=== PATIENT | female | born 1995 | race Caucasian/White ===

== ENCOUNTER 2018-09-10 09:39 | Emergency (ER) | payer MEDICAID, SELFPAY ==
[2018-09-10 09:46] VITALS: BP 113/65; PULSE 92; RESP 18; TEMP 37; O2SAT 96
--- NOTE | 2018-09-10 10:14 | DI.CT_ITS ---
SYMPTOM/DIAGNOSIS: RLQ ABD PAIN CT ABDOMEN AND PELVIS: CT scan of the abdomen and pelvis was performed following the uneventful administration of intravenous contrast material. Comparison x-ray is 05/30/18. The visualized lung bases are clear. The liver, spleen, gallbladder, bile ducts, pancreas and adrenal glands are all unremarkable. The portal and superior mesenteric veins are patent. The kidneys show normal and symmetric enhancement. No evidence of a solid renal mass or obstruction. The urinary bladder is intact. The reproductive organs show an intrauterine device with a horizontal orientation with the distal aspect projected to the right. It is unchanged in alignment compared to the plain films from 05/30/18. The right ovary appears grossly unremarkable. Note is made of a 2.7 cm left adnexal cyst probably ovarian. The bowel shows no evidence of obstruction or inflammation. There is a normal appendix present. The aorta is of normal caliber. No significant abdominal or pelvic adenopathy or pneumoperitoneum is seen. There is a trace amount of free fluid in the pelvis. The bones are intact. IMPRESSION: 1. No evidence of an acute abdomen. Normal appendix. No biliary ductal dilatation. No evidence of obstructive uropathy. 2. 2.7 cm left ovarian cyst. 3. Intrauterine device. The findings were discussed with the Emergency Department on the date of the examination.
--- NOTE | 2018-09-10 10:18 | ED.GENADUL_ITS ---
Discharge Plan Disposition Patient Disposition: HOME Condition: Stable Discharge Details Chief Complaint: Abd Prob Clinical Impression: Abdominal pain, Serous otitis media, Ovarian cyst Primary Care Provider: Nakia Hidalgo ED Provider: Greyson Guevara Home Meds and New Rx's Prescriptions: Continue levonorgestrel [Mirena] 1 EACH intrauterine device 1 applic .Route UNKNOWN RF: 0 Discharge Instructions Instructions: Abdominal Pain (ED), Serous Otitis Media (ED) Additional Instructions: Feel free to return to the emergency department for any new or worsening symptoms otherwise follow-up with your primary care for reassessment if not improving. You may also contact women's wellness and schedule an appointment for evaluation of ovarian cysts. You may take Tylenol as needed for any pain or discomfort and stay well-hydrated and get plenty of rest Stand Alone Forms: Work Release Referrals: Nakia Hidalgo [Primary Care Provider] - (As needed for reassessment or if not improving. ) Discharge Data Discharge Date/Time-TO BE ENTERED AT DEPARTURE: 09/10/18 15:08 Medical Decision Making Patient presenting to the emergency department for not feeling well for 3 days. Patient states that she has had abdominal pain that is been epigastrium and lower quadrants and earache. She does state that she had a upper respiratory tract infection which is mostly resolved then started having some ear discomfort. Then also over the weekend she started having abdominal discomfort. She denies any nausea vomiting but does state some fever. Physical exam is positive for right lower quadrant tenderness with positive McBurney's point and rovings sign. Physical exam is otherwise unremarkable. Patient does have history of endometriosis but states that she has been on the Mirena and has not had symptoms for a little under a year. Concern for possible appendicitis, endometriosis/ovarian cyst, other abdominal pathology. Plan to establish IV access check labs give ketorolac for pain control. Review of labs is nondiagnostic with no specific findings. Review of CT imaging and speaking with radiologist shows a roughly 2 cm left ovarian cyst with normal appendix and no other acute abdominal findings noted. Patient was reassessed and continues to state right-sided pain but no other findings. My visualization of CT imaging it did seem like there was a moderate amount of stool which patient does state history of constipation and stool issues. Discussed with patient use of [id number] fiber supplements and staying well-hydrated otherwise I feel patient is able to be safely discharged follow- up with primary care and women's wellness as needed for ovarian cyst or reassessment. HPI General Mode of arrival: ambulatory . Date/Time Provider Initiated Documentation: 09/10/18 09:58 . Limitations to Documentation: no limitations . Information obtained by: patient and RN notes reviewed . History of Present Illness 23 year old F presents to the emergency department with the chief complaint of abd/ear pain, with intensity rated at 7. Quality is described as aching, and is localized to the abdomen. Patient started experiencing this day(s) (3) and it has been constant. No relieving factors improve symptom(s), No exacerbating factors reported . Patient did receive the following treatments prior to arrival, none Related Data Home Medications Medication Instructions Recorded Confirmed levonorgestrel [Mirena] 1 applic .ROUTE UNKNOWN 05/30/18 05/30/18 Allergies Allergy/AdvReac Type Severity Reaction Status Date / Time No Known Allergies Allergy Unverified 05/30/18 11:27 General Stated Complaint: Abd Prob GEO: 3 Review of Systems Constitutional Denies chills, Reports fever(s) and Reports poor appetite ENT Reports otalgia Cardiovascular Denies chest pain and Denies dyspnea Respiratory Denies dyspnea Gastrointestinal Reports as per HPI, Reports abdominal pain, Denies melena, Denies change in bowel habits, Denies constipation, Denies diarrhea, Reports nausea and Denies vomiting Genitourinary Denies abnormal menses, Denies hematuria, Denies dyspareunia, Denies urinary incontinence, Denies urinary hesitancy, Denies urinary urgency and Denies vaginal discharge Integumentary/Breasts Denies rash PFSH Social History Smoking/Tobacco Use Status: Current every day Exam Const General: cooperative Orientation: alert, awake and oriented x3 HENMT Head: normal to inspection, normocephalic and atraumatic Ears: hearing grossly normal bilaterally, external ears normal and TM's normal bilaterally Resp Effort & Inspection: normal respiratory effort and able to speak in complete sentences Auscultation: clear to auscultation bilaterally Cardio Rate: regular rate Rhythm: regular rhythm Heart Sounds: S1 normal and S2 normal GI Palpation: soft, no hepatosplenomegaly, not firm, no guarding, no masses, no pulsatile masses, not rigid, no splenomegaly and tender in the RLQ, at McBurney' s point and Rovsing's sign positive; not suprapubicly and Ceja's sign negative Auscultation: normal bowel sounds Back/Spine/Pelvis Back: no CVA tenderness Neuro General: alert, awake, oriented x3, gait normal and moves all extremities Course Vital Signs Temperature 37.0 C 09/10/18 09:46 Pulse 92 H 09/10/18 09:46 Respiratory Rate 18 09/10/18 09:46 Blood Pressure 113/65 09/10/18 09:46 Pulse Oximetry 96 09/10/18 09:46 Temperature 37.0 C 09/10/18 09:46 Temperature Source Temporal Artery Scan 09/10/18 09:46 Pulse 92 H 09/10/18 09:46 Respiratory Rate 18 09/10/18 09:46 Blood Pressure 113/65 09/10/18 09:46 Blood Pressure Position Sitting 09/10/18 09:46 Pulse Oximetry 96 09/10/18 09:46 Oxygen Delivery Method Room Air 09/10/18 09:46 Oxygen Flow Rate 0 09/10/18 09:46 Pain Level 8 09/10/18 09:46
[2018-09-10] MEDS: Ketorolac 30 MG/ML VIAL IVP (10:40)
[2018-09-10 10:41] LABS: Bilirubin Negative (Negative); Blood Moderate (Negative); Clarity Sl Cloudy; Glucose Negative (Negative); Ketones Trace mg/dL (Negative); Leukocyte Esterase Negative (Negative); Nitrite Negative (Negative); Specific Gravity >= 1.030 (1.005-1.025); Urobilinogen 0.2 EU/dL (Up TO 0.2)
[2018-09-10] MEDS: Normal Saline 1,000 ML 1000 ML IV (10:41)
[2018-09-10 10:46] LABS: Abs Immature Grans 0.01 k/cumm (0.0-0.09); Absolute Basophil Count 0.02 k/cumm (0.0-0.2); Absolute Eosinophil Count 0.04 k/cumm (0.0-0.7); Absolute Lymphocyte Count 2.46 k/cumm (1.2-3.4); Absolute Monocyte Count 0.49 k/cumm (0.11-0.7); Absolute Neutrophil Count 3.28 k/cumm (1.2-6.7); Basophils % 0.3; Eosinophils % 0.6; HCT 42.1 % (36.0-46.0); HGB 14.6 g/dL (12.0-15.5); Immature Grans % 0.2; Mean Corp. HGB Concentration 34.7 g/dL (32.0-36.0); Mean Corpuscular Hemoglobin 33.3 pg (27.0-33.0); Mean Corpuscular Volume 95.9 fL (80-95); Mean Platelet Volume 10.6 fL (8.0-11.0); Monocytes % 7.8; Neutrophils % 52.1; Platelet Count 199 x1000/uL (130-400); RBC 4.39 m/cumm (4.00-5.20); RBC Distribution Width 12.2 % (11.7-14.6)
[2018-09-10] MEDS: diphenhydrAMINE 50 MG/ML VIAL 25 MG IVP (10:47)
[2018-09-10 10:56] LABS: Bacteria Many HPF (Negative); C & S Indicated? No; Casts Negative LPF (Negative); Crystals Negative HPF (Negative); Epithelial Cells Many HPF (Negative); Mucus Heavy (Negative); RBC 0-2 (0-2); WBC 0-2 HPF (0-5)
[2018-09-10 10:56] LABS: Lipase 149 U/L (73-393)
[2018-09-10 10:59] LABS: ALT 24 U/L (12-78); AST 15 U/L (15-37); Albumin 4.4 g/dL (3.4-5.0); Alkaline Phosphatase 69 U/L (46-116); Anion Gap 8.3 mmol/L (3-11); BUN 13 mg/dL (7-18); Bilirubin, Total 0.4 mg/dL (0.2-1.0); CO2 28.7 mmol/L (21.0-32.0); CREATININE 0.81 mg/dL (0.55-1.02); Calcium 9.4 mg/dL (8.5-10.1); Chloride 103 mmol/L (98-107); Glucose 75 mg/dL (70-100); Potassium 3.7 mmol/L (3.5-5.1); Sodium 140 mmol/L (136-145); Total Protein 8.1 g/dL (6.4-8.2)
[2018-09-10] MEDS: Omnipaque 350 MG/ML 100 ML BTL IJ (12:32)
== END 2018-09-10 15:08 | disposition home or self-care (01) ==
PROVIDERS: Emergency Provider Nurse Practitioner Family; PCP Registered Nurse
DX: N83.201 Unspecified ovarian cyst, right side (principal); H65.00 Acute serous otitis media, unspecified ear
CPT/HCPCS: 36415; 80053; 81025; 83690; 96361; 96374; 96375; 99285; 74177; 81003; 81015; 85025; 99284; J1200; J1885; J3490